=== PATIENT | female | born 1970 | race Caucasian/White ===

== ENCOUNTER → 2020-03-30 | Outpatient (CLI) | payer BC ==
--- NOTE | 2020-03-30 10:55 | KCIC ---
STUDY: MRI of the right knee without contrast INDICATION: Ongoing knee pain since a fall injury in December 2019. COMPARISON: Right knee radiographs 01/12/2020 TECHNIQUE: Multiplanar MR imaging of the right knee performed without the use of contrast. FINDINGS: Menisci: Undersurface oblique/horizontal tear of the medial meniscus centered at the posterior body/horn junction but extending to involve the body and posterior horn, reference image 7 series 6. Probable focal free edge tear of the mid lateral meniscal body, image 12 series 8. Heterogeneity at the anterior root insertion of the lateral meniscus is favored physiologic from dispersion of fibers. Cruciate ligaments: Intact. Collateral ligaments: Findings most compatible with a grade 1 sprain of the proximal TCL with edema-like signal both superficial and deep to the ligament but no high-grade or full-thickness tear. No evidence for rupture of the deep medial collateral ligament complex. The lateral collateral ligaments are intact. Tendons: Intact. Cartilage: Patellofemoral: Heterogeneity of the patellar cartilage at a few locations on the axial T2 sequence favored in part from superficial chondrosis. No high-grade or full-thickness defect. Lateral and medial compartments: No high-grade or full-thickness chondrosis. Bones: Patchy/heterogeneous T2 signal elevation involving the femoral metaphysis and epiphysis much more so than the proximal tibia. Superimposed more confluent T2 hyperintense signal seen at the periphery of the lateral femoral condyle and at the inner margin of the medial femoral condyle. No acute fracture. Miscellaneous: No significant knee joint effusion. Trace fluid within the semimembranosus-medial gastrocnemius bursa. IMPRESSION: 1. Undersurface oblique/horizontal tearing of the medial meniscus involving the body segment and posterior horn. Cardiac/Vascular Sonographer tear defect at the posterior body/horn junction on image 7 series 6. Probable focal free edge tear of the mid lateral meniscal body. Intact cruciate ligaments. 2. Findings most compatible with grade 1 sprain of the proximal tibial collateral ligament as there is no high-grade or full-thickness ligament tear. The lateral collateral ligaments are intact. 3. Abnormal marrow signal mainly within the femoral epiphysis and metaphysis. This could represent a manifestation of prior contusion though if there has been limited mobility since the patient's injury an additional consideration would be a somewhat unusual manifestation of disuse osteopenia. 4. Possible superficial chondrosis involving the patella. No high-grade or full-thickness chondral defect seen throughout the knee. Electronically signed by: EVAN DYER MD (03/30/2020 10:52 AM) [id number]
== END | disposition home or self-care (01) ==
LOC: KCIC MRI 08:03
PROVIDERS: ATTEND Orthopaedic Surgery
DX: S83.411D Sprain of medial collateral ligament of right knee, subsequent encounter (principal); X58.XXXD Exposure to other specified factors, subsequent encounter
CPT/HCPCS: 73721

== ENCOUNTER → 2020-10-09 | Outpatient (CLI) | payer BC ==
--- NOTE | 2020-10-09 11:50 | KCIC ---
MRI study of the left knee without contrast Clinical indications: Injury to left knee playing basketball on October 01, 2020. Left knee pain and li mited range of motion. COMPARISON: Left knee radiographic study dated October 04, 2020. TECHNIQUE: Noncontrast MRI sequences of the left knee were performed in all 3 planes. FINDINGS: There is a tear of the femoral insertion of the anterior cruciate ligament. There is associ ated pivot shift bone marrow contusions of the medial and lateral femoral condyles and the posterior aspect of the medial and lateral tibial plateaus. No fracture line is evident. Overlying articular ca rtilage appears intact. The quadriceps and patellar tendons are intact. There is an inferior articula r surface tear of the posterior body of the medial meniscus. This is small and is seen on sagittal se quences 6 and 7 and image 19. The lateral meniscus is intact. The medial collateral ligament is intac t and no meniscocapsular separation is seen. The lateral collateral ligament complex and iliotibial b and and popliteus tendon are intact. No posterior lateral corner injury is seen. The patella is stanford lly aligned. There is mild chondromalacia patellae involving the medial and lateral patellar facets a nd apex. The trochlear articular cartilage is unremarkable. The medial and lateral retinacular ligame nts are intact. There is a medial plica ridge. There is a Estrada's cyst which measures 3 cm in vertica l dimension. There is multilobulated cyst just posterior to the medial femoral epicondyle. This measu res 2 cm in greatest dimension. This can be followed down to the joint capsule consistent with a juan articular ganglion cyst. No muscle edema is seen otherwise. IMPRESSION: Tear of the ACL at the femoral insertion with associated pivot shift bone marrow contusio ns. Small tear of the posterior body of the medial meniscus. Chondromalacia patellae. Estrada's cyst. Additional medial posterior periarticular ganglion cyst. Electronically signed by: Haroon Curtis MD (10/09/2020 11:48 AM) [id number]
== END ==
LOC: KCIC MRI 09:24
PROVIDERS: ATTEND Orthopaedic Surgery
DX: S83.242A Other tear of medial meniscus, current injury, left knee, initial encounter (principal); M71.22 Synovial cyst of popliteal space [Baker], left knee; M22.42 Chondromalacia patellae, left knee; X58.XXXA Exposure to other specified factors, initial encounter; Y93.89 Activity, other specified; Y92.89 Other specified places as the place of occurrence of the external cause; Y99.8 Other external cause status
CPT/HCPCS: 73721